=== PATIENT | male | born 1990 | race African-American/Black ===

== ENCOUNTER 2018-04-23 09:37 | Emergency (ER) | payer SELFPAY ==
[2018-04-23 09:56] VITALS: BP 134/70; PULSE 73; TEMP 98.2; BMI 21.7
--- NOTE | 2018-04-23 11:46 | PDOC ---
History of Present Illness - General Chief Complaint: Pain, Acute Stated Complaint: RIGHT Shoulder PAIN Time Seen by Provider: 04/23/18 10:49 History Source: Patient Exam Limitations: Clinical Condition - History of Present Illness Initial Comments: 04/23/18 11:54 Patient with no significant past medication present with complaint of right shoulder pain status post trying to reach for something overhead 2 days ago and over stretching right shoulder. Patient reported increased pain when he elevates right upper extremity. Patient reported mild weakness in right shoulder. 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 Patient denies any other symptoms. Timing/Duration: other (2 days) Past History - Past Medical History Allergies/Adverse Reactions: Allergies Allergy/AdvReac Type Severity Reaction Status Date / Time No Known Allergies Allergy Verified 01/19/12 04:07 Home Medications: Ambulatory Orders Methocarbamol [Robaxin -] 500 mg PO TID PRN #21 tablet 04/23/18 Naproxen 500 mg PO BID PRN #20 tablet 04/23/18 COPD: No - Immunization History Td Vaccination: Yes Immunization Up to Date: Yes - Suicide/Smoking/Psychosocial Hx Smoking Status: No Smoking History: Never smoked Number of Cigarettes Smoked Daily: 0 Hx Alcohol Use: No Drug/Substance Use Hx: Yes (MARIJUANA) Review of Systems - Review of Systems Able to Perform ROS?: Yes Is the patient limited Egyptian proficient: No Constitutional: Yes: Weakness (right shoulder) Respiratory: No: Symptoms reported Cardiac (ROS): No: Symptoms Reported ABD/GI: No: Symptoms Reported Musculoskeletal: Yes: Joint Pain (right shoulder), Muscle Pain (right shoulder) , Muscle Weakness (right shoulder) Neurological: Yes: Weakness (right shoulder). No: Paresthesia, Tingling All Other Systems: Reviewed and Negative *Physical Exam - Vital Signs Last Vital Signs Temp Pulse Resp BP Pulse Ox 98.2 F 73 16 134/70 99 04/23/18 09:53 04/23/18 09:53 04/23/18 09:53 04/23/18 09:53 04/23/18 09:53 - Physical Exam Comments: 04/23/18 11:42 GENERAL: Well developed, well nourished. Awake and alert. No acute distress. CARDIOVASCULAR: Regular rate and rhythm. No murmurs, rubs, or gallops. PULMONARY: No evidence of respiratory distress. Lungs clear to auscultation bilaterally. No wheezing, rales or rhonchi. ABDOMINAL: Soft. Non-tender. Non-distended. No rebound or guarding. No organomegaly. Normoactive bowel sounds MUSCULOSKELETAL : Exam shows visible muscle bulging over right AC joint. 4/5 muscle strength of RUE. x-rays of right shoulder shows no acute pathology. No bony deformities EXTREMITIES: No cyanosis. No clubbing. No edema. No calf tenderness. SKIN: Warm and dry. Normal capillary refill. No rashes. No jaundice. NEUROLOGICAL: Alert, awake, appropriate. No motor deficits in the lower extremities. Gait is normal without ataxia. PSYCHIATRIC: Cooperative. Good eye contact. Appropriate mood and affect. 04/23/18 11:46 General Appearance: Yes: Nourished, Appropriately Dressed, Mild Distress Moderate Sedation - Procedure Monitoring Vital Signs: Procedure Monitoring Vital Signs Temperature 98.2 F 04/23/18 09:53 Pulse Rate 73 04/23/18 09:53 Respiratory Rate 16 04/23/18 09:53 Blood Pressure 134/70 04/23/18 09:53 O2 Sat by Pulse Oximetry (%) 99 04/23/18 09:53 ED Treatment Course - RADIOLOGY Radiology Studies Ordered: Category Date Time Status SHOULDER-RIGHT [RAD] Stat Radiology 04/23/18 10:58 Completed Medical Decision Making - Medical Decision Making 04/23/18 11:42 Patient with no significant past medication present with complaint of right shoulder pain status post trying to reach overhead 2 days ago. Patient now with increased pain with elevation of right upper extremity. Exam shows visible muscle bulging over right AC joint. 4/5 muscle strength of RUE. x-rays of right shoulder shows no acute pathology. patient symptoms likely muscle spray vs rotator cuff tear which will no be visible on x-ray. patient stable for discharge on NSAIDS and muscle relaxer with orthopedics follow-up for shoulder MRI. sling applied to shoulder *DC/Admit/Observation/Transfer Diagnosis at time of Disposition: Right shoulder pain Qualifiers: Chronicity: acute Qualified Code(s): M25.511 - Pain in right shoulder - Discharge Dispostion Disposition: HOME Condition at time of disposition: Stable Decision to Admit order: No - Prescriptions Prescriptions: Methocarbamol [Robaxin -] 500 mg PO TID PRN #21 tablet PRN Reason: shoulder pain Naproxen 500 mg PO BID PRN #20 tablet PRN Reason: shoulder pain - Referrals Referrals: Keith Yeh MD [Staff Physician] - - Patient Instructions Printed Discharge Instructions: Shoulder Sprain, DI for Shoulder Labral Tear Additional Instructions: Take medication as prescribed as needed for shoulder pain. apply heat to shoulder 2-3 times/day for 5-10mins as needed. Follow-up with referred orthopedics as soon as possible for possible MRI of shoulder - Post Discharge Activity Forms/Work/School Notes: Back to Work
[2018-04-23] MEDS ORDERED: IBUPROFEN 400 MG TABLET (FP) PO ONE ×2 (11:48→11:50)
[2018-04-23] MEDS ORDERED: CYCLOBENZAPRINE HCL 10 MG TABLET (FP) PO ONE (11:48)
== END 2018-04-23 12:19 | disposition home or self-care (01) ==
LOC: JERFT 09:37
DX: M25.511 Pain in right shoulder (principal)
CPT/HCPCS: 73030-TC-RT-FY; 99281-25

== ENCOUNTER 2020-07-30 08:04 | Emergency (ER) | payer SELFPAY ==
[2020-07-30 08:13] VITALS: BP 123/85; PULSE 98; TEMP 98.2; BMI 22.3
[2020-07-30] MEDS ORDERED: AZITHROMYCIN 500 MG TABLET PO ONE (08:22)
[2020-07-30] MEDS ORDERED: AZITHROMYCIN 250 MG TABLET ONE (08:53)
[2020-07-30 14:00] LABS: HIV INTERPRETATION NEGATIVE (NEGATIVE)
== END 2020-07-30 09:10 | disposition home or self-care (01) ==
LOC: FER 08:04
DX: R36.9 Urethral discharge, unspecified (principal)
CPT/HCPCS: 36415; 81003; 86780; 87086; 87389; 87491; 87591; 99284-25

== ENCOUNTER 2021-02-12 11:12 | Emergency (ER) | payer OTHER ==
[2021-02-12 11:17] VITALS: BP 134/77; PULSE 84; TEMP 98.8; BMI 26.4
== END 2021-02-12 12:59 | disposition home or self-care (01) ==
LOC: FER 11:12
DX: R07.89 Other chest pain (principal)
CPT/HCPCS: 71045-TC-FY; 93005; 99284-25

== ENCOUNTER 2021-03-07 12:19 | Emergency (ER) | payer OTHER ==
[2021-03-07 12:28] VITALS: BP 118/88; PULSE 96; TEMP 98.9; BMI 22.6
[2021-03-07] MEDS ORDERED: IBUPROFEN 400 MG TABLET (FP) PO ONE ×2 (12:32→12:36)
== END 2021-03-07 13:18 | disposition home or self-care (01) ==
LOC: FER 12:19
DX: M20.012 Mallet finger of left finger(s) (principal)
CPT/HCPCS: 73130-TC-LT-FY; 99284-25

== ENCOUNTER 2022-03-23 11:19 | Emergency (ER) | payer OTHER ==
[2022-03-23] MEDS ORDERED: MAG HYDROX/AL HYDROX/SIMETH 30 ML UNIT-DOSE CUP PO ONE (11:42)
[2022-03-23] MEDS ORDERED: FAMOTIDINE 20 MG TABLET PO ONE (11:42)
[2022-03-23] MEDS ORDERED: ACETAMINOPHEN 500 MG TABLET (FP) PO ONE (11:43)
[2022-03-23] MEDS ORDERED: MAG HYDROX/AL HYDROX/SIMETH 30 ML UNIT-DOSE CUP ONE (11:52)
[2022-03-23] MEDS ORDERED: FAMOTIDINE 20 MG TABLET ONE (11:52)
[2022-03-23] MEDS ORDERED: ACETAMINOPHEN 325 MG TABLET (FP) ONE (11:52)
[2022-03-23 11:54] VITALS: BP 129/77; PULSE 75; RESP 20; TEMP 98.2; BMI 22.3
[2022-03-23 12:22] LABS: HEMATOCRIT 44.7 % (35.4-49); HEMOGLOBIN 15.4 G/dL (11.7-16.9); MCH 27.9 pg (25.7-33.7); MCHC 34.4 g/dl (32.0-35.9); MEAN CELL VOLUME 81.2 fl (80-96); MEAN PLT VOLUME 7.2 fl (7.5-11.1); RDW 14.9 % (11.9-15.9); WHITE BLOOD COUNT 8.6 10^3/uL (4.0-10.8)
[2022-03-23 12:28] LABS: BILIRUBIN,TOTAL 0.6 mg/dl (0.2-1); CALCIUM 9.2 mg/dl (8.5-10); CREATININE 1.2 mg/dl (0.55-1.3); TOT PROT 6.9 g/dl (6.4-8.2)
[2022-03-23 12:32] LABS: PLATELET ESTIMATE ADEQUATE
== END 2022-03-23 16:05 | disposition home or self-care (01) ==
LOC: FER 11:19
DX: R10.13 Epigastric pain (principal)
CPT/HCPCS: 0241U-QW; 36415; 80053; 83690; 85027; 93005; 99284-25

== ENCOUNTER 2024-03-22 18:41 | Emergency (ER) | payer OTHER ==
[2024-03-22 19:13] VITALS: RESP 16; BMI 23.7
[2024-03-22] MEDS ORDERED: ACETAMINOPHEN INJECTION 100 ML ONE (20:09)
[2024-03-22 20:36] LABS: HEMATOCRIT 41.6 % (35.4-49); HEMOGLOBIN 13.8 GM/dL (11.7-16.9); MCH 26.4 pg (25.7-33.7); MCHC 33.2 g/dl (32.0-35.9); MEAN CELL VOLUME 79.5 fl (80-96); MEAN PLT VOLUME 6.2 fl (7.5-11.1); PLATELET COUNT 361 10^3/uL (134-434); RBC 5.23 M/mm3 (4.00-5.60); RDW 14.3 % (11.9-15.9); WHITE BLOOD COUNT 19.3 K/mm3 (4.0-10.0)
[2024-03-22] MEDS: ACETAMINOPHEN 1000 MG/100 ML BAG IVPB ONE (20:36)
[2024-03-22] MEDS ORDERED: ONDANSETRON 4 MG/2 ML VIAL ONE (20:41)
[2024-03-22 20:44] LABS: INR 1.5 (0.83-1.09); PROTHROMBIN TIME (PATIENT) 16.7 SEC (9.7-13.0)
[2024-03-22 20:46] LABS: ACTIVATED PTT 30.7 SECONDS (25.2-36.5)
[2024-03-22] MEDS: ONDANSETRON 4 MG/2 ML VIAL IVPUSH ONE (20:51)
[2024-03-22 20:57] LABS: ALBUMIN 3.6 g/dl (3.4-5.0); BLOOD UREA NITROGEN 13.6 mg/dL (7-18); CALCIUM 8.9 mg/dL (8.5-10.1)
[2024-03-22 21:01] LABS: CREATININE 1.4 mg/dL (0.55-1.3)
[2024-03-22 21:02] LABS: BILIRUBIN,TOTAL 0.8 mg/dL (0.2-1)
[2024-03-22 21:21] LABS: ANISOCYTOSIS 0; HELMET CELLS 0; HOWELL-JOLLY BODIES 0; MACROCYTOSIS 0; OVALOCYTE 0; ROULEAU 0; SICKELED CELLS 0; TARGET CELLS 0; TEAR DROP CELLS 0; TOXIC GRANULATION 0
[2024-03-22 21:36] LABS: EPI CELLS 3 /uL (0-25.1); HYALINE CASTS 0 /uL (0-3.1); URINE APPEARANCE CLOUDY; URINE BACTERIA 2 /uL (0-1359); URINE BILIRUBIN NEGATIVE (NEGATIVE); URINE COLOR YELLOW; URINE GLUCOSE (UA) NEGATIVE (NEGATIVE); URINE KETONE 1+ (NEGATIVE); URINE LEUK ESTERASE NEGATIVE (NEGATIVE); URINE NITRITE NEGATIVE (NEGATIVE); URINE PROTEIN 1+ (NEGATIVE); URINE RBC 12 /uL (0-23.9); URINE UROBILINOGEN 0.2 mg/dL (0.2-1.0); URINE WBC 7 /uL (0-25.8)
[2024-03-22] MEDS: LACTATED RINGERS SOLUTION 1000 ML INFUS.BAG IV ONE (21:57)
[2024-03-22 22:23] VITALS: BP 103/57; PULSE 84; TEMP 99.8
[2024-03-23] MEDS ORDERED: AZITHROMYCIN 500 MG TABLET ONE (00:32)
[2024-03-23] MEDS ORDERED: AMOXICILLIN 500 MG CAPSULE (FP) ONE (00:33)
[2024-03-23] MEDS: AZITHROMYCIN 500 MG TABLET PO ONE (00:42)
[2024-03-23] MEDS: AMOXICILLIN 500 MG CAPSULE (FP) PO ONE (00:42)
== END 2024-03-23 00:55 | disposition home or self-care (01) ==
LOC: JER 18:41
PROC: 3E033NZ Introduction of Analgesics, Hypnotics, Sedatives into Peripheral Vein, Percutaneous Approach (ICD-10-PCS; principal; 2024-03-22)
PROC: 3E033GC Introduction of Other Therapeutic Substance into Peripheral Vein, Percutaneous Approach (ICD-10-PCS; 2024-03-22)
DX: J18.9 Pneumonia, unspecified organism (principal); R39.15 Urgency of urination; R53.83 Other fatigue; R50.9 Fever, unspecified; R11.10 Vomiting, unspecified; R10.84 Generalized abdominal pain; R39.81 Functional urinary incontinence; M79.10 Myalgia, unspecified site; R11.2 Nausea with vomiting, unspecified; Z20.822 Contact with and (suspected) exposure to COVID-19
CPT/HCPCS: 0241U-QW; 36415; 71046-TC-FY; 74177-TC; 80053; 81003; 82550; 83605; 85025; 85610; 85730; 86850; 86900; 86901; 87040; 87086; 99285-25; J0131; Q9967